=== PATIENT | female | born 1980 | race Caucasian/White ===

== ENCOUNTER 2019-12-28 11:01 | Outpatient (RCR) | payer BC ==
[2019-11-13 09:15] VITALS: BP 98/70
--- NOTE | 2019-11-13 10:18 | NUR ---
DR. LEESA BANSAL CALLED A THIS TIME IN REGARDS TO PT. CRYING AND NOT BEING ABLE TO UNDERSTAND ANYTHING SHE IS SAYING DUE TO HER MIGRAINE (SAYS PT.) WHEN SHE CAME IN, SHE SAYS SHE GETS THAT WAY. PER ASIM, HOLD ROCEPHIN IV UNTIL SATURDAY AND START THEN. SHE HAD GIVEN HER A VALIUM TO TAKE BEFORE COMING FOR HER PICC LINE PROCEDURE.
--- NOTE | 2019-11-13 10:32 | Diagnostic Imaging Report ---
INDICATION: PICC line placement Frontal chest obtained at 10:25 a.m. There is a PICC line placed in the right arm with tip overlying the distal SVC. Heart is normal in size. Lungs are clear. There is no pneumothorax or pleural fluid. IMPRESSION: New right-sided PICC line tip overlies distal SVC. Otherwise negative study. Dictated by: Dictated on workstation # [id number]
--- NOTE | 2019-11-13 11:07 | NUR ---
'S OFFICE CALLED AND STATED TO GO AHEAD AND START ROCEPHIN ORDERS TODAY, NEW ORDER FAXED & CLARIFIED AT THIS TIME.
[2019-11-13] MEDS: cefTRIAXone 1,000 MG/SWFI 10 ML IV PUSH IV SCH ×2 (11:40)
[2019-11-14] MEDS: cefTRIAXone 1,000 MG/SWFI 10 ML IV PUSH IV SCH ×2 (09:12)
[2019-11-14 09:13] VITALS: BP 94/61
[2019-11-15] MEDS: cefTRIAXone 1,000 MG/SWFI 10 ML IV PUSH IV SCH ×2 (09:11)
[2019-11-15 09:14] VITALS: BP 93/71
[2019-11-16] MEDS: cefTRIAXone 1,000 MG/SWFI 10 ML IV PUSH IV SCH ×2 (09:05)
[2019-11-16 09:15] VITALS: BP 101/73
[2019-11-17] MEDS: cefTRIAXone 1,000 MG/SWFI 10 ML IV PUSH IV SCH ×2 (09:15)
[2019-11-17 09:25] VITALS: BP 99/67
[2019-11-18] MEDS: cefTRIAXone 1,000 MG/SWFI 10 ML IV PUSH IV SCH ×2 (09:08)
[2019-11-18 09:13] VITALS: BP 106/67
[2019-11-19] MEDS: cefTRIAXone 1,000 MG/SWFI 10 ML IV PUSH IV SCH ×2 (09:21)
[2019-11-19 09:30] VITALS: BP 105/76
[2019-11-20] MEDS: cefTRIAXone 1,000 MG/SWFI 10 ML IV PUSH IV SCH ×2 (09:07)
[2019-11-20 09:20] VITALS: BP 101/72
[2019-11-27 09:16] LABS: HEMOGLOBIN 12.8 G/DL (11.5-16.0); MEAN PLATELET VOLUME 9.9 FL (7.4-10.4); RED CELL DISTRIBUTION WIDTH 11.9 % (10.0-14.5); WHITE BLOOD COUNT 3.4 10^3/uL (4.3-11.0)
[2019-11-27 09:20] VITALS: BP 100/61
[2019-11-27 09:28] LABS: ALBUMIN 4.1 GM/DL (3.2-4.5); CHLORIDE 107 MMOL/L (98-107); SODIUM 139 MMOL/L (135-145)
[2019-11-27 09:29] LABS: CALCIUM 8.4 MG/DL (8.5-10.1)
[2019-11-27 09:30] LABS: GLUCOSE 115 MG/DL (70-105)
[2019-11-27 09:31] LABS: TOTAL PROTEIN 6.7 GM/DL (6.4-8.2)
[2019-11-27 09:32] LABS: BILIRUBIN,TOTAL 0.4 MG/DL (0.1-1.0); CARBON DIOXIDE 23 MMOL/L (21-32)
[2019-11-27 09:34] LABS: ALKALINE PHOSPHATASE 66 U/L (40-136); CREATININE SERUM 0.77 MG/DL (0.60-1.30); GFR ESTIMATED > 60
[2019-11-27 09:35] LABS: BUN/CREATININE RATIO 9
[2019-11-27 09:37] LABS: ALANINE AMINOTRANSFERASE 21 U/L (0-55)
[2019-12-04 09:10] VITALS: BP 102/63
[2019-12-11 09:36] VITALS: BP 100/58
[2019-12-11 09:40] LABS: BASOPHILS % (AUTO) 0 % (0-10); EOSINOPHILS # (AUTO) 0.1 10^3/uL (0.0-0.3); EOSINOPHILS % (AUTO) 2 % (0-10); HEMATOCRIT 38 % (35-52); HEMOGLOBIN 12.6 G/DL (11.5-16.0); LYMPHOCYTES # (AUTO) 1.1 X 10^3 (1.0-4.0); LYMPHOCYTES % (AUTO) 37 % (12-44); MEAN CORPUSCULAR HEMOGLOBIN 29 PG (25-34); MEAN CORPUSCULAR HGB CONC 34 G/DL (32-36); MEAN CORPUSCULAR VOLUME 85 FL (80-99); MEAN PLATELET VOLUME 10.2 FL (7.4-10.4); MONOCYTES # (AUTO) 0.3 X 10^3 (0.0-1.0); MONOCYTES % (AUTO) 9 % (0-12); NEUTROPHILS # (AUTO) 1.6 X 10^3 (1.8-7.8); NEUTROPHILS % (AUTO) 51 % (42-75); PLATELET COUNT 196 10^3/uL (130-400); RED CELL DISTRIBUTION WIDTH 11.9 % (10.0-14.5); WHITE BLOOD COUNT 3.1 10^3/uL (4.3-11.0)
[2019-12-11 10:00] LABS: ALANINE AMINOTRANSFERASE 17 U/L (0-55); ALBUMIN 4.1 GM/DL (3.2-4.5); ALKALINE PHOSPHATASE 65 U/L (40-136); BILIRUBIN,TOTAL 0.5 MG/DL (0.1-1.0); BUN/CREATININE RATIO 14; CALCIUM 8.6 MG/DL (8.5-10.1); CARBON DIOXIDE 24 MMOL/L (21-32); CHLORIDE 105 MMOL/L (98-107); GFR ESTIMATED > 60; GLUCOSE 88 MG/DL (70-105); POTASSIUM 3.8 MMOL/L (3.6-5.0); SODIUM 139 MMOL/L (135-145); TOTAL PROTEIN 6.6 GM/DL (6.4-8.2)
[2019-12-11 10:04] LABS: BAND NEUTROPHILS 1 %; BASOPHILS % (MANUAL) 0 %; EOSINOPHILS % (MANUAL) 3 %; LYMPHOCYTES % (MANUAL) 41 %; MONOCYTES % (MANUAL) 9 %; NEUTROPHILS % (MANUAL) 46 %; RBC MORPH NORMAL
--- NOTE | 2019-12-11 10:07 | NUR ---
LABS FAXED TO SONJA BANSAL'S OFFICE
[2019-12-18 08:55] VITALS: BP 99/58
[2019-12-18 09:36] LABS: BASOPHILS % (AUTO) 1 % (0-10); EOSINOPHILS # (AUTO) 0.1 10^3/uL (0.0-0.3); EOSINOPHILS % (AUTO) 2 % (0-10); HEMATOCRIT 38 % (35-52); HEMOGLOBIN 12.9 G/DL (11.5-16.0); LYMPHOCYTES # (AUTO) 1.2 X 10^3 (1.0-4.0); LYMPHOCYTES % (AUTO) 37 % (12-44); MEAN CORPUSCULAR HEMOGLOBIN 29 PG (25-34); MEAN CORPUSCULAR HGB CONC 34 G/DL (32-36); MEAN CORPUSCULAR VOLUME 85 FL (80-99); MEAN PLATELET VOLUME 10.4 FL (7.4-10.4); MONOCYTES # (AUTO) 0.3 X 10^3 (0.0-1.0); MONOCYTES % (AUTO) 9 % (0-12); NEUTROPHILS # (AUTO) 1.6 X 10^3 (1.8-7.8); NEUTROPHILS % (AUTO) 51 % (42-75); PLATELET COUNT 188 10^3/uL (130-400); RED CELL DISTRIBUTION WIDTH 11.9 % (10.0-14.5); WHITE BLOOD COUNT 3.2 10^3/uL (4.3-11.0)
[2019-12-18 09:53] LABS: ALANINE AMINOTRANSFERASE 15 U/L (0-55); ALBUMIN 4.2 GM/DL (3.2-4.5); ALKALINE PHOSPHATASE 70 U/L (40-136); BILIRUBIN,TOTAL 0.5 MG/DL (0.1-1.0); BUN/CREATININE RATIO 11; CALCIUM 8.8 MG/DL (8.5-10.1); CARBON DIOXIDE 24 MMOL/L (21-32); CHLORIDE 108 MMOL/L (98-107); CREATININE SERUM 0.75 MG/DL (0.60-1.30); GFR ESTIMATED > 60; GLUCOSE 92 MG/DL (70-105); POTASSIUM 3.9 MMOL/L (3.6-5.0); SODIUM 141 MMOL/L (135-145); TOTAL PROTEIN 6.8 GM/DL (6.4-8.2)
[2019-12-18 10:11] LABS: LYMPHOCYTES % (MANUAL) 42 %; MONOCYTES % (MANUAL) 9 %; NEUTROPHILS % (MANUAL) 49 %; RBC MORPH NORMAL
[2019-12-22] MEDS: cefTRIAXone 2,000 MG/SWFI 20 ML IV PUSH IV SCH ×2 (11:10)
[2019-12-22 11:30] VITALS: BP 101/67
[2019-12-23 11:05] VITALS: BP 99/62
[2019-12-23] MEDS: cefTRIAXone 2,000 MG/SWFI 20 ML IV PUSH IV SCH ×2 (11:16)
[2019-12-24] VITALS (10 sets, daily range): BP systolic 99–116; BP diastolic 66–81
[2019-12-24] MEDS: cefTRIAXone 2,000 MG/SWFI 20 ML IV PUSH IV SCH ×2 (11:11)
[2019-12-25 11:00] VITALS: BP 140/97
[2019-12-25] MEDS: cefTRIAXone 2,000 MG/SWFI 20 ML IV PUSH IV SCH ×2 (11:07)
[2019-12-25 11:28] LABS: HEMOGLOBIN 12.7 G/DL (11.5-16.0); MEAN PLATELET VOLUME 9.9 FL (7.4-10.4); RED CELL DISTRIBUTION WIDTH 12.1 % (10.0-14.5); WHITE BLOOD COUNT 3.7 10^3/uL (4.3-11.0)
[2019-12-25 11:50] LABS: ALBUMIN 4.2 GM/DL (3.2-4.5)
[2019-12-25 11:51] LABS: CHLORIDE 108 MMOL/L (98-107); POTASSIUM 4.3 MMOL/L (3.6-5.0); SODIUM 139 MMOL/L (135-145)
[2019-12-25 11:52] LABS: CALCIUM 8.7 MG/DL (8.5-10.1)
[2019-12-25 11:53] LABS: GLUCOSE 104 MG/DL (70-105); TOTAL PROTEIN 6.8 GM/DL (6.4-8.2)
[2019-12-25 11:54] LABS: CARBON DIOXIDE 22 MMOL/L (21-32)
[2019-12-25 11:55] LABS: BILIRUBIN,TOTAL 0.3 MG/DL (0.1-1.0)
[2019-12-25 11:56] LABS: ALKALINE PHOSPHATASE 66 U/L (40-136); CREATININE SERUM 0.67 MG/DL (0.60-1.30); GFR ESTIMATED > 60
[2019-12-25 11:58] LABS: BUN/CREATININE RATIO 10
[2019-12-25 11:59] LABS: ALANINE AMINOTRANSFERASE 15 U/L (0-55)
[2019-12-26] MEDS: cefTRIAXone 2,000 MG/SWFI 20 ML IV PUSH IV SCH ×2 (09:10)
[2019-12-26 09:15] VITALS: BP 98/54
[2019-12-27] MEDS: cefTRIAXone 2,000 MG/SWFI 20 ML IV PUSH IV SCH ×2 (09:09)
[2019-12-27 09:15] VITALS: BP 100/56
[~2019-12-28] VITALS: Ht 167.7 cm
[~2019-12-28 11:01] MED LIST: ALPR0.5T PO; BUSP5TAB59 PO; DCS100C PO; ESTR1TAB24 PO; GABA-488 PO; IBP800T PO; LORazepam INJ 2 MG/ML (ATIVAN) VIAL IM ONE; MECL-124 PO; NF-NOR777T PO; OXYC-272 PO; SPRINTEC PO; WATER (STERILE) FOR INJECTION 10 ML ONE; cefTRIAXone 1,000 MG IV (ROCEPHIN) VIAL ONE; cefTRIAXone 2,000 MG/SWFI 20 ML IV PUSH IV SCH
[2019-12-28] MEDS: cefTRIAXone 2,000 MG/SWFI 20 ML IV PUSH IV SCH ×2 (11:12)
[2019-12-28 11:30] VITALS: BP 103/67
== END 2019-12-28 11:30 | disposition home or self-care (01) ==
LOC: SDC 11:01
PROVIDERS: ATTEND Nurse Practitioner Family
DX: A69.22 Other neurologic disorders in Lyme disease (principal)
CPT/HCPCS: 36415; 36569; 71045; 76937; 80053; 82962; 85007; 85027; 96365; 96374; 99211

== ENCOUNTER → 2020-02-01 | Outpatient (CLI) | payer BC ==
[~2020-02-01] VITALS: Ht 165 cm; Wt 58.0 kg
[2020-02-01] VITALS (32 sets, daily range): BP systolic 94–109; BP diastolic 63–81
[~2020-02-01] MED LIST changes: -LORazepam INJ 2 MG/ML (ATIVAN) VIAL IM ONE; +NS IV 1000 ML 1,000 ML IV ONE; +NS IV 1000 ML 1,000 ML ONE; -WATER (STERILE) FOR INJECTION 10 ML ONE; -cefTRIAXone 1,000 MG IV (ROCEPHIN) VIAL ONE; -cefTRIAXone 2,000 MG/SWFI 20 ML IV PUSH IV SCH
== END ==
LOC: CARD 13:29
PROVIDERS: ATTEND Internal Medicine Interventional Cardiology
DX: R55 Syncope and collapse (principal)
CPT/HCPCS: 93660

== ENCOUNTER 2020-02-02 12:32 | Outpatient (RCR) | payer BC ==
[~2020-02-02 12:32] MED LIST changes: -NS IV 1000 ML 1,000 ML IV ONE; -NS IV 1000 ML 1,000 ML ONE
== END 2020-05-02 | disposition home or self-care (01) ==
LOC: CARD 12:32
PROVIDERS: ATTEND Internal Medicine Interventional Cardiology
DX: R55 Syncope and collapse (principal)
CPT/HCPCS: 93306

== ENCOUNTER → 2020-07-12 | Outpatient (CLI) | payer BC ==
--- NOTE | 2020-07-12 16:24 | Diagnostic Imaging Report ---
INDICATION: Pain and swelling. TECHNIQUE: Multiple Real-time grayscale images were obtained over the right upper extremity in various projections. Duplex Doppler and color Doppler images were also obtained. FINDINGS: There is a PICC line in the basilic vein. The remainder of the right upper extremity venous system demonstrates normal response to compression, augmentation, and Valsalva. There are no abnormal fluid collections or masses. IMPRESSION: No evidence of deep venous thrombosis in the right upper extremity. Dictated by: Dictated on workstation # [id number]
== END ==
LOC: RAD 15:14
PROVIDERS: ATTEND Nurse Practitioner Family
DX: M25.511 Pain in right shoulder (principal)

== ENCOUNTER 2020-09-27 10:00 | Outpatient (RCR) | payer BC ==
[2020-07-05 12:15] VITALS: BP 106/79
[2020-07-06] MEDS: cefTRIAXone 1,000 MG/SWFI 10 ML IV PUSH IV SCH ×2 (14:15)
[2020-07-06 14:25] VITALS: BP 98/63
[2020-07-07 14:00] VITALS: BP 102/72
[2020-07-07] MEDS: cefTRIAXone 1,000 MG/SWFI 10 ML IV PUSH IV SCH ×2 (14:03)
[2020-07-08] MEDS: cefTRIAXone 1,000 MG/SWFI 10 ML IV PUSH IV SCH ×2 (10:08)
[2020-07-08 10:17] VITALS: BP 103/81
[2020-07-12 10:00] VITALS: BP 104/70
--- NOTE | 2020-07-12 11:01 | Diagnostic Imaging Report ---
Indication: Right-sided chest pain Portable chest 10:50 AM Right extremity PICC line tip projects over the SVC. Heart size and pulmonary vascularity are normal. Lungs are clear. There are no effusions or pneumothoraces. IMPRESSION: No acute abnormalities in the chest Dictated by: Dictated on workstation # [id number]
[2020-07-19 10:25] VITALS: BP 103/68
[2020-07-26 10:10] VITALS: BP 102/60
[2020-08-02 10:15] VITALS: BP 105/63
[2020-08-09 10:05] VITALS: BP 99/63
[2020-08-23 10:15] VITALS: BP 98/64
[2020-08-31 09:12] VITALS: BP 96/64
[2020-09-06 10:20] VITALS: BP 109/70
[2020-09-13 13:30] VITALS: BP 106/70
[2020-09-20 10:11] VITALS: BP 110/75
[~2020-09-27] VITALS: Ht 165 cm; Wt 58.0 kg
[~2020-09-27 10:00] MED LIST changes: +WATER (STERILE) FOR INJECTION 10 ML ONE; +cefTRIAXone 1,000 MG IV (ROCEPHIN) VIAL ONE; +cefTRIAXone 1,000 MG/SWFI 10 ML IV PUSH IV ONE
[2020-09-27 10:20] VITALS: BP 107/68
== END 2020-10-03 | disposition home or self-care (01) ==
LOC: SDC 10:00
PROVIDERS: ATTEND Nurse Practitioner Family
DX: A69.20 Lyme disease, unspecified (principal); G43.909 Migraine, unspecified, not intractable, without status migrainosus
CPT/HCPCS: 36569; 76937; 96374; C1751; 71045; 99211

== ENCOUNTER 2020-10-04 10:02 | Outpatient (RCR) | payer BC ==
[~2020-10-04] VITALS: Ht 165.1 cm; Wt 58.0 kg
[~2020-10-04 10:02] MED LIST changes: -WATER (STERILE) FOR INJECTION 10 ML ONE; -cefTRIAXone 1,000 MG IV (ROCEPHIN) VIAL ONE; -cefTRIAXone 1,000 MG/SWFI 10 ML IV PUSH IV ONE
[2020-10-04 10:06] VITALS: BP 98/58
== END 2020-10-04 10:06 | disposition home or self-care (01) ==
LOC: SDC 10:02
PROVIDERS: ATTEND Nurse Practitioner Family
DX: Z45.2 Encounter for adjustment and management of vascular access device (principal)

== ENCOUNTER → 2021-12-07 | Outpatient (CLI) | payer BC ==
--- NOTE | 2021-12-07 14:48 | Diagnostic Imaging Report ---
CLINICAL INDICATION: Patient has been having seizures. It has been going on for 5 years. EXAM: MRI of the brain performed without IV contrast. Sequences include sagittal T1, axial DWI, ADC map, coronal 3D FSPGR with sagittal and axial reformations, axial T1, axial T2, axial FLAIR, coronal gradient echo, coronal T2 thin, and coronal FLAIR thin. COMPARISON: Head CT without contrast dated 03/20/2015. FINDINGS: BRAIN PARENCHYMA: There is no evidence of acute cerebral infarction, intracranial hemorrhage, or mass seen. There is no evidence of cortical dysplasia, vascular malformations, hippocampal sclerosis, or brain parenchyma migrational abnormalities. The brain parenchyma is unremarkable with normal xiao/ white matter distinction. The hippocampal structures are symmetric bilaterally. There is no significant architectural distortion, midline shift, or herniation. There is no diffusion restriction signal abnormality. VENTRICLES: Unremarkable with no hydrocephalus. BASAL CISTERNS: Unremarkable. VISUALIZED INTRACRANIAL VESSELS: Unremarkable as visualized. SKULL/ ORBITS: Unremarkable. VISUALIZED SINUSES/ MASTOIDS: Unremarkable. IMPRESSION: Unremarkable MRI of the brain with no evidence of cortical dysplasia, vascular malformations, hippocampal sclerosis, or brain parenchyma migrational abnormalities. Dictated by: Dictated on workstation # [id number]
== END ==
LOC: RAD 12:30
PROVIDERS: ATTEND Nurse Practitioner Family
DX: G40.89 Other seizures (principal); Q28.3 Other malformations of cerebral vessels; A69.22 Other neurologic disorders in Lyme disease
CPT/HCPCS: 70551

== ENCOUNTER 2021-12-19 09:07 | Day surgery (SDC) | payer BC ==
[~2021-12-19] VITALS: Ht 167 cm; Wt 48.0 kg
[2021-12-19 09:35] VITALS: BP 103/77
[2021-12-19] MEDS ORDERED: DEXT10TA9 PO (10:01)
[2021-12-19] MEDS ORDERED: QUET25TA PO (10:01)
[2021-12-19 10:02] LABS: INR 1.1 (0.8-1.4); PROTHROMBIN TIME PATIENT 14.1 SEC (12.2-14.7)
--- NOTE | 2021-12-19 10:38 | Anesthesia-Procedure Note ---
Procedures/Interventions Procedure Start/Stop/Diagnosis Date of Procedure: December 19, 2021 Start Time: 10:00 Stop Time: 10:35 Lumbar Puncture Discussed Risk,Benefits: Yes Patient Consents: Yes Position: Lying, Left Sterile Technique: Yes Opening Pressure: 15 Fluid Color: clear Spinal Needle Used: Other (22 gauge pencan) GONZALO CARTAGENA CRNA December 19, 2021 10:38
[2021-12-19 11:29] LABS: CSF GLUCOSE 56 MG/DL (50-80); CSF TOTAL PROTEIN 15 MG/DL (15-40)
[2021-12-19 11:38] LABS: APPEARANCE,CSF CLEAR; COLOR,CSF COLORLESS; RED BLOOD CELL,CSF 0.56 CELLS (0-0); WHITE BLOOD CELL,CSF 0.56 CELLS (0-5)
[2021-12-19 11:39] LABS: CSF TUBE NUMBER 4
== END 2021-12-19 10:45 | disposition home or self-care (01) ==
LOC: SDC 09:07
PROVIDERS: ATTEND Anesthesiology
DX: G43.909 Migraine, unspecified, not intractable, without status migrainosus (principal)
CPT/HCPCS: 36415; 82945; 84157; 85610; 85730; 86592; 86618; 87070; 87205; 89051

== ENCOUNTER → 2023-02-04 | Outpatient (CLI) | payer BC ==
[~2023-02-04] MED LIST changes: +DEXT10TA9 PO; +GADOTERATE 0.5 MMOL/ML (CLARISCAN) 15 ML VIAL IV ONE; +QUET25TA PO
--- NOTE | 2023-02-04 14:36 | Diagnostic Imaging Report ---
PROCEDURE: MR imaging of the brain with and without contrast. TECHNIQUE: Multiplanar, multisequence MR imaging of the brain was performed with and without contrast. INDICATION: Migraines. COMPARISON: 12/07/2021. FINDINGS: No acute ischemia, mass, or hemorrhage. No abnormal enhancement. The ventricles, cortical sulci, and basilar cisterns are symmetric and unremarkable. The sellar and suprasellar regions have a normal appearance. The brainstem and posterior fossa are unremarkable. The paranasal sinuses and mastoid air cells demonstrate normal signal characteristics. The globes and orbits are symmetric and unremarkable. The scalp and calvarium have a normal appearance. IMPRESSION: 1. No acute ischemia, mass, or hemorrhage. No abnormal enhancement. Dictated by: Dictated on workstation # [id number]
== END ==
LOC: RAD 13:28
PROVIDERS: ATTEND Nurse Practitioner Family
DX: G44.89 Other headache syndrome (principal); R25.1 Tremor, unspecified
CPT/HCPCS: 70553

== ENCOUNTER 2023-04-05 09:58 | Outpatient (RCR) | payer BC ==
[2023-03-29 14:08] LABS: BASOPHILS % (AUTO) 1 % (0-10); EOSINOPHILS # (AUTO) 0.1 10^3/uL (0.0-0.3); EOSINOPHILS % (AUTO) 1 % (0-10); HEMATOCRIT 37 % (35-52); HEMOGLOBIN 12.4 g/dL (11.5-16.0); LYMPHOCYTES # (AUTO) 1.1 10^3/uL (1.0-4.0); LYMPHOCYTES % (AUTO) 31 % (12-44); MEAN CORPUSCULAR HEMOGLOBIN 30 pg (25-34); MEAN CORPUSCULAR HGB CONC 34 g/dL (32-36); MEAN CORPUSCULAR VOLUME 88 fL (80-99); MEAN PLATELET VOLUME 9.3 fL (9.0-12.2); MONOCYTES # (AUTO) 0.2 10^3/uL (0.0-1.0); MONOCYTES % (AUTO) 7 % (0-12); NEUTROPHILS # (AUTO) 2.2 10^3/uL (1.8-7.8); NEUTROPHILS % (AUTO) 60 % (42-75); PLATELET COUNT 165 10^3/uL (130-400); WHITE BLOOD COUNT 3.7 10^3/uL (4.3-11.0)
[2023-03-29 14:22] LABS: POTASSIUM 3.8 MMOL/L (3.6-5.0)
[2023-03-29 14:23] LABS: CALCIUM 8.7 MG/DL (8.5-10.1)
[2023-03-29 14:24] LABS: TOTAL PROTEIN 6.7 GM/DL (6.4-8.2)
[2023-03-29 14:26] LABS: BILIRUBIN,TOTAL 0.6 MG/DL (0.1-1.0)
[2023-03-29 14:28] LABS: CREATININE SERUM 0.73 MG/DL (0.60-1.30)
[2023-03-29 14:30] VITALS: BP 102/73
[~2023-04-05] VITALS: Ht 170.2 cm; Wt 48.0 kg
[~2023-04-05 09:58] MED LIST changes: -GADOTERATE 0.5 MMOL/ML (CLARISCAN) 15 ML VIAL IV ONE; +cefTRIAXone 1 GM/NS 50 ML IVPB IV ONE
[2023-04-05 10:00] VITALS: BP 102/65
== END 2023-04-18 | disposition home or self-care (01) ==
LOC: SDC 09:58
PROVIDERS: ATTEND Nurse Practitioner Family
DX: A69.23 Arthritis due to Lyme disease (principal)
CPT/HCPCS: 36569; 76937; 80053; 85025; 96365; C1751; 36415; 99211

== ENCOUNTER 2023-04-06 13:05 | Emergency (ER) | payer BC ==
[~2023-04-06] VITALS: Ht 167.7 cm; Wt 53.5 kg
[~2023-04-06 13:05] MED LIST changes: -cefTRIAXone 1 GM/NS 50 ML IVPB IV ONE
--- NOTE | 2023-04-06 13:47 | ED General ---
General Chief Complaint: Catheter/Drain/Tube Problems Stated Complaint: PROBELM WITH PIC LINE Nursing Triage Note: pt ambulatory to room. pt has picc line to left upper arm on arrival. states she has a picc line for rocephin infusions for lyme disease. states two days ago she was changing dressing and accidentally pulled the line out 3-4 inches. states she pushed it back in and it is able to draw and flush appropriately. however, pt states since this time she has had a burning or heartburn feeling and the same sensation on her left side under arm. pt states pain is a constant and also has pain at the site due to blistering and skin irritation. pt went to surgery center yesterday where they replaced dressing and pt states "they didnt seem too worried about it." pt state her pcp is out of town, but was told to come out here to see about getting picc removed. Source of Information: Patient Exam Limitations: No Limitations History of Present Illness Date Seen by Provider: Apr 06, 2023 Time Seen by Provider: 13:26 Initial Comments 42-year-old female presents to the ER with issues with her PICC line. She states that she has been having a rash and blisters at the dressing site for a while, she placed a cream underneath the dressing which resulted in the PICC line slipping out. This occurred on night, 04/04/2023. She attempted to push the PICC line back in. Since then she has had a burning sensation in her left chest and left lateral ribs. She also reports shortness of air since this occurred. She denies fevers, nausea, vomiting. She has the PICC line for Rocephin infusions for Lyme disease. She is requesting that the PICC line be removed. She said that she has been in contact with her primary, who said that we can contact her about the PICC line. Allergies and Home Medications Allergies Coded Allergies: No Known Drug Allergies (Unverified , 03/20/15) Patient Home Medication List Home Medication List Reviewed: Yes Alprazolam (Xanax) 0.5 Mg Tablet, 0.5 MG PO BID, (Reported) Entered as Reported by: KAROLINE THOMPSON on 11/18/19 3449 Dextroamphetamine/Amphetamine (Adderall 10 mg Tablet) 10 Mg Tablet, 10 MG PO, (Reported) Entered as Reported by: RONALD ROSARIO on 12/19/21 1001 Estradiol (Estradiol) 1 Mg Tablet, 1 MG PO DAILY, (Reported) Entered as Reported by: LINDA HAMILTON on 03/20/15 1325 Quetiapine Fumarate (Seroquel) 25 Mg Tablet, 25 MG PO, (Reported) Entered as Reported by: RONALD ROSARIO on 12/19/21 1001 Review of Systems Review of Systems Constitutional: see HPI Past Qaofzbj-Vqfyrv-Ujmihi Hx Immunizations Up To Date Tetanus Booster (TDap): Unknown Past Medical History Appendectomy, Breast, Gallbladder, Hysterectomy Respiratory: No Cardiac: No Neurological: Yes Headaches /Migraines, Vertigo Reproductive Disorders: No [employer]ATOR History: Hysterectomy Sexually Transmitted Disease: No Gastrointestinal: No Cancer: No Blood Disorders: No Physical Exam Vital Signs Vital Signs - First Documented 04/06/23 13:14 Temp 36.6 Pulse 88 Resp 24 B/P (MAP) 104/70 (81) Pulse Ox 99 Capillary Refill : Height, Weight, BMI Height: 5'5" Weight: 120lbs. oz. 54.473975se; 19.00 BMI Method:Stated General Appearance: No Apparent Distress, WD/WN Neck: Normal Inspection, Supple Respiratory: Lungs Clear, Normal Breath Sounds, No Accessory Muscle Use, No Respiratory Distress Cardiovascular: Regular Rate, Rhythm Extremity: Normal Inspection, Normal Range of Motion Neurologic/Psychiatric: Alert, Normal Mood/Affect Skin: Normal Color, Warm/Dry Progress/Results/Core Measures Suspected Sepsis SIRS Temperature: Pulse: 88 Respiratory Rate: 24 Laboratory Tests 04/06/23 13:55: White Blood Count 4.1L Blood Pressure 104 /70 Mean: 81 Laboratory Tests 04/06/23 13:55: Creatinine 0.76, INR Comment 1.0, Platelet Count 193, Total Bilirubin 0.5 Results/Orders Lab Results Laboratory Tests Test 04/06/23 13:55 Range/Units White Blood Count 4.1 L 4.3-11.0 10^3/uL Red Blood Count 4.27 3.80-5.11 10^6/uL Hemoglobin 12.8 11.5-16.0 g/dL Hematocrit 38 35-52 % Mean Corpuscular Volume 89 80-99 fL Mean Corpuscular Hemoglobin 30 25-34 pg Mean Corpuscular Hemoglobin Concent 34 32-36 g/dL Red Cell Distribution Width 11.9 10.0-14.5 % Platelet Count 193 130-400 10^3/uL Mean Platelet Volume 9.0 9.0-12.2 fL Immature Granulocyte % (Auto) 1 % Neutrophils (%) (Auto) 53 42-75 % Lymphocytes (%) (Auto) 35 12-44 % Monocytes (%) (Auto) 7 0-12 % Eosinophils (%) (Auto) 3 0-10 % Basophils (%) (Auto) 1 0-10 % Neutrophils # (Auto) 2.2 1.8-7.8 10^3/uL Lymphocytes # (Auto) 1.4 1.0-4.0 10^3/uL Monocytes # (Auto) 0.3 0.0-1.0 10^3/uL Eosinophils # (Auto) 0.1 0.0-0.3 10^3/uL Basophils # (Auto) 0.0 0.0-0.1 10^3/uL Immature Granulocyte # (Auto) 0.0 0.0-0.1 10^3/uL Prothrombin Time 13.2 12.2-14.7 SEC INR Comment 1.0 0.8-1.4 Activated Partial Thromboplast Time 30 24-35 SEC Sodium Level 141 135-145 MMOL/L Potassium Level 3.7 3.6-5.0 MMOL/L Chloride Level 108 H 98-107 MMOL/L Carbon Dioxide Level 24 21-32 MMOL/L Anion Gap 9 5-14 MMOL/L Blood Urea Nitrogen 9 7-18 MG/DL Creatinine 0.76 0.60-1.30 MG/DL Estimat Glomerular Filtration Rate 100 BUN/Creatinine Ratio 12 Glucose Level 81 70-105 MG/DL Calcium Level 8.8 8.5-10.1 MG/DL Corrected Calcium 8.7 8.5-10.1 MG/DL Magnesium Level 2.1 1.6-2.4 MG/DL Total Bilirubin 0.5 0.1-1.0 MG/DL Aspartate Amino Transf (AST/SGOT) 26 5-34 U/L Alanine Aminotransferase (ALT/SGPT) 20 0-55 U/L Alkaline Phosphatase 66 40-136 U/L Troponin I < 0.028 <0.028 NG/ML Total Protein 6.8 6.4-8.2 GM/DL Albumin 4.1 3.2-4.5 GM/DL My Orders Orders - KIMBERLY NORTH [employer] CONSULTANT Cbc With Automated Diff (04/06/23 13:51) Magnesium (04/06/23 13:51) Chest 1 View, Ap/Pa Only (04/06/23 13:51) Ekg Tracing (04/06/23 13:51) Comprehensive Metabolic Panel (04/06/23 13:51) Protime With Inr (04/06/23 13:51) Partial Thromboplastin Time (04/06/23 13:51) Monitor-Rhythm Ecg Trace Only (04/06/23 13:51) Ed Iv/Invasive Line Start (04/06/23 13:51) Troponin I Pleasants (04/06/23 13:51) Vital Signs/I&O 04/06/23 04/06/23 13:14 14:55 Temp 36.6 Pulse 88 78 Resp 24 B/P (MAP) 104/70 (81) 104/72 Pulse Ox 99 100 Capillary Refill : Blood Pressure Mean: 81 Progress Note : Progress Note Patient seen and evaluated, resting comfortably in bed, no acute distress. I called and spoke with patient's primary care provider, Erica Monsalve, nurse practitioner. She stated that we can discontinue the PICC line. Nursing staff to D/C the PICC line. Will reevaluate pain after PICC line is removed. 1351 PICC line removed, patient reports chest pain is still present. Cardiac work-up initiated including CBC, CMP, troponin, coags, magnesium, chest x-ray, EKG. 1443 Labs and chest x-ray reviewed. No concerning findings on CBC, CMP, coags. Troponin negative, magnesium normal. Chest x-ray shows no acute cardiopulmonary process. Patient reports some improvement in the pain. It is possible that the PICC line was the cause of the burning sensation in her chest. Results discussed with patient. Discharge instructions and return precautions provided. ECG Initial ECG Impression Date: Apr 06, 2023 Initial ECG Impression Time: 14:00 Initial ECG Rate: 66 Initial ECG Rhythm: Normal Sinus Initial ECG Intervals: Normal Initial ECG Impression: Normal Initial ECG Comparisson: Unchanged Diagnostic Imaging Diagonstic Imaging: Xray Plain Films/CT/US/NM/MRI: chest Comments [facility], [place] NAME: MARTY MEYER [facility] REC#: [id number] PT STATUS: REG ER : 1980 PHYSICIAN: KIMBERLY NORTH APRN ADMIT DATE: 04/06/23/ER Signed Date of Exam:04/06/23 CHEST 1 VIEW, AP/PA ONLY PATIENT HISTORY: Chest pain. TECHNIQUE: Single frontal view of the chest. COMPARISON: 07/12/2020 FINDINGS: The lung volumes are normal. No focal consolidation is seen. No large pleural effusion or pneumothorax is seen. The cardiomediastinal silhouette is normal in size and contour. No acute osseous abnormality is seen. IMPRESSION: No acute pulmonary abnormality seen. Dictated by: Dictated on workstation # [id number] Dict: 04/06/23 1415 Trans: 04/06/23 1421 [facility] [id number] Interpreted by: STARR CAMPBELL MD Electronically signed by: STARR CAMPBELL MD 04/06/23 1421 Departure Impression Primary Impression: Chest pain Disposition: 01 HOME, SELF-CARE Condition: Stable Departure-Patient Inst. Decision time for Depature: 14:47 Referrals: ILYA MONSALVE DO (PCP) Primary Care Physician SONJA MONSALVE DNP (Family) Primary Care Physician Patient Instructions: Chest Pain, Adult ED Add. Discharge Instructions: Follow-up with your primary care provider. Return for any new, concerning, or worsening symptoms. All discharge instructions reviewed with patient and/or family. Voiced u nderstanding. KIMBERLY NORTH APRN Apr 06, 2023 13:47
[2023-04-06 14:05] LABS: BASOPHILS % (AUTO) 1 % (0-10); EOSINOPHILS # (AUTO) 0.1 10^3/uL (0.0-0.3); EOSINOPHILS % (AUTO) 3 % (0-10); HEMATOCRIT 38 % (35-52); HEMOGLOBIN 12.8 g/dL (11.5-16.0); LYMPHOCYTES # (AUTO) 1.4 10^3/uL (1.0-4.0); LYMPHOCYTES % (AUTO) 35 % (12-44); MEAN CORPUSCULAR HEMOGLOBIN 30 pg (25-34); MEAN CORPUSCULAR HGB CONC 34 g/dL (32-36); MEAN CORPUSCULAR VOLUME 89 fL (80-99); MONOCYTES # (AUTO) 0.3 10^3/uL (0.0-1.0); MONOCYTES % (AUTO) 7 % (0-12); NEUTROPHILS # (AUTO) 2.2 10^3/uL (1.8-7.8); NEUTROPHILS % (AUTO) 53 % (42-75); PLATELET COUNT 193 10^3/uL (130-400); WHITE BLOOD COUNT 4.1 10^3/uL (4.3-11.0)
[2023-04-06 14:14] LABS: ALBUMIN 4.1 GM/DL (3.2-4.5); CHLORIDE 108 MMOL/L (98-107); POTASSIUM 3.7 MMOL/L (3.6-5.0); PROTHROMBIN TIME PATIENT 13.2 SEC (12.2-14.7); SODIUM 141 MMOL/L (135-145)
[2023-04-06 14:15] LABS: CALCIUM 8.8 MG/DL (8.5-10.1)
[2023-04-06 14:16] LABS: GLUCOSE 81 MG/DL (70-105)
[2023-04-06 14:17] LABS: TOTAL PROTEIN 6.8 GM/DL (6.4-8.2)
[2023-04-06 14:18] LABS: BILIRUBIN,TOTAL 0.5 MG/DL (0.1-1.0); CARBON DIOXIDE 24 MMOL/L (21-32)
[2023-04-06 14:20] LABS: ALKALINE PHOSPHATASE 66 U/L (40-136); CREATININE SERUM 0.76 MG/DL (0.60-1.30); GFR ESTIMATED 100
[2023-04-06 14:21] LABS: BUN/CREATININE RATIO 12
--- NOTE | 2023-04-06 14:21 | Diagnostic Imaging Report ---
PATIENT HISTORY: Chest pain. TECHNIQUE: Single frontal view of the chest. COMPARISON: 07/12/2020 FINDINGS: The lung volumes are normal. No focal consolidation is seen. No large pleural effusion or pneumothorax is seen. The cardiomediastinal silhouette is normal in size and contour. No acute osseous abnormality is seen. IMPRESSION: No acute pulmonary abnormality seen. Dictated by: Dictated on workstation # [id number]
[2023-04-06 14:23] LABS: ALANINE AMINOTRANSFERASE 20 U/L (0-55); MAGNESIUM 2.1 MG/DL (1.6-2.4)
[2023-04-06 14:55] VITALS: BP 104/72
== END 2023-04-06 14:55 | disposition home or self-care (01) ==
LOC: EDUNIT# 13:05 → ER 13:08
DX: R07.89 Other chest pain (principal); A69.20 Lyme disease, unspecified; Z28.310 Unvaccinated for COVID-19
CPT/HCPCS: 36415; 71045; 80053; 83735; 84484; 85025; 85610; 85730; 93005; 93041